=== PATIENT | female | born 1985 | race Caucasian/White ===

== ENCOUNTER 2016-12-14 21:13 | Emergency (ER) | payer OTHER ==
[~2016-12-14] VITALS: Ht 152.4 cm; Wt 59.1 kg
[2016-12-14 21:16] VITALS: BP 111/81; PULSE 75; RESP 20; O2SAT 100
[2016-12-14] MEDS ORDERED: 0.9% Sodium Chloride 1,000 ML IV ONE (21:40)
[2016-12-14] MEDS ORDERED: MetoCLOpramide 5 mg/mL 2 mL Inj IVPUSH ONE (21:40)
--- NOTE | 2016-12-14 21:40 | ED.REPORT ---
HPI-Headache Date of Service December 14, 2016 ED Provider: Dr. Carmelo Amos MD Patient is a 31 year old female with a history of migraine headaches who presents to the ED with a generalized headache that began 3 days ago. Associated symptoms include nausea, vomiting and photophobe. This is similar to her previous episodes. Patient took Depakote with little relief. She denies any head injury, LOC, numbness/tingling in one side. Nursing Notes Stated Complaint: HEADACHE,VOMITING Chief Complaint: Headache Nursing Notes Reviewed: Yes Allergies: Coded Allergies: sumatriptan (Verified Allergy, Unknown, 12/14/16) General Time Seen by MD: 21:39 Chief Complaint Headache Hx Obtained From: Patient Arrived By: Walk-in Sudden in Onset?: No Symptom Duration: Since onset Location: : Generalized Quality: Aching Radiation: : Does not radiate Severity: Current: Moderate Severity: Maximum: Moderate Associated with: Reports: Nausea, Photophobia, Vomiting Pertinent Negative: Pt denies other symptoms Recent Healthcare: No recent doctor visit, No recent hospitalization Risk-Headache )( SAH Risk Stratification RF Statements: Risk factors reviewed )( IC Mass Risk Stratification RF Statements: Risk factors reviewed Past Medical History Past Medical History Migraines Past Surgical History Reports: Hysterectomy Smoking History Unknown if Ever Smoker Social History Alcohol Use: Denies alcohol use Drug Use: Denies drug use Other Social History: Good social support, Local resident Ambulatory Status Independent Review of Systems Constitutional: Denies: Chills, Fever Eyes: Reports: Photophobia GI: Reports: Nausea, Vomiting Neurologic: Reports: Headache, Denies: Change LOC Complete sys rev & neg: except as marked. Physical Exam Initial Vital Signs Vital Signs (First) Date Time Temp Pulse Resp B/P Pulse Ox O2 Delivery O2 Flow Rate FiO2 12/14/16 21:16 36.4 75 20 111/81 100 Room Air Initial VS: Reviewed Extremities: Vascular intact, Neuro intact, No swelling, No tenderness Skin: Warm, Dry, No cyanosis Psychiatric: Mood/affect normal, Behavior normal, Normal thought content General/Constitutional: Awake, Alert Appearance / Presentation: Positive: Uncomfortable Head / Eyes: Atraumatic, Normocephalic, PERRL Neck: Atraumatic, Supple, No meningismus, Full range of motion Meningeal Signs / ROM: Negative: Nuchal rigidity present Neurologic: Oriented X3, Speech NL, No motor deficits, No sensory deficits, CN II - XII intact, Reflexes equal bilat NEURO: No lateralizing deficits. Respiratory / Chest: Atraumatic, Breath sounds NL, Breath sounds = bilat, No respiratory distress Cardiovascular: Heart rate NL, Regular rhythm, Heart sounds NL, No gallop, No murmurs, No rubs, Peripheral circulation NL Abdomen: Atraumatic, Soft, Non-tender, BS normoactive, No distention Re-Eval/Medical Decision Med Decision/Clinical Course In summary, patient is a 31-year-old female with past medical history significant for migraine headaches and previous hysterectomy, who presents with persistent migraine headache headache that has not responded to her home therapy. Our primary and secondary assessment reveals an awake, alert patient in no acute distress. Hemodynamically stable and afebrile. Exam reveals normal neurologic exam. Suspect the patient's headache represents a migraine or tension type headache. Considered other causes of headache to include: Subdural hemorrhage, subarachnoid hemorrhage, [employer] tumor, meningitis, encephalitis, venous sinus thrombosis, dissection, temporal arteritis, intracranial hypertension ( psuedotumor cerebri), sinusitis or cervicalgia, although these are less likely based on the history, exam findings as noted above. Based on this, I feel that further imaging would be low yield and is not warranted at this time. Discussed the risks and benefits of this with the patient who is in agreement. Also discussed with the patient at length that if symptoms change, worsen, or persist, should return to the ER for reevaluation. They understand and agree with the plan. Given the patient's workup, feel they are safe for discharge. The patient was given IV fluids, Reglan, Benadryl and Toradol with good effect. Prior to discharge follow-up and return precautions were reviewed in detail with the patient who verbalized understanding and agreement with the plan. The patient was discharged in stable condition. Re-Evaluation/Progress : Time of Eval: 21:55 )( Patient Status: Condition improved Re-Evaluation/Progress Note: Her pain is still present and she is resting comfortably. All questions are addressed and she understands the return preacutions. Counseled Regarding: Diagnosis, Need for follow-up, When/why to return to ED Discharge & Departure Impression: Primary Impression: Migraine headache Migraine type: unspecified Status migrainosus presence: without status migrainosus Intractability: not intractable Qualified Code: G43.909 - Migraine, unspecified, not intractable, without status migrainosus Additional Impressions: Sensitivity to light Sound sensitivity Laterality: unspecified laterality Qualified Code: H83.3X9 - Noise effects on inner ear, unspecified ear Nausea and vomiting Vomiting type: unspecified Vomiting Intractability: unspecified Qualified Code: R11.2 - Nausea with vomiting, unspecified Disposition: Home Discharge Condition All VS Reviewed: Yes Condition: Improved Patient Instructions: Migraine Headache (ED) Additional Instructions: Thank you for seeking care at the emergency room. It is difficult for us to make definitive diagnoses in the ED but we believe that you are experiencing a migraine headache. Our primary goal today in the ED was to evaluate you for any life-threatening conditions. Your evaluation was reassuring. Take ibuprofen as directed on the bottle as needed for pain. You should follow-up with your primary doctor in the next week. You should return to the ED immediately if you develop any neck stiffness, persistent pain, fevers, vomiting, lightheadedness, weakness or any other concerning signs or symptoms. Thank you for letting us partake in your care today. Referrals: [facility] Scribe Attestation Portions of this note were transcribed by Soledad Tyler. I, Dr. Amos personally performed the history, physical exam and medical decision-making; I reviewed and confirmed the accuracy of the information in the transcribed note. Signed by: Sotero Archer, 12/14/16 [id number]. Carmelo Amos MD December 14, 2016 21:40 SOLEDAD TYLER December 14, 2016 21:42 SOLEDAD TYLER December 14, 2016 21:42
== END 2016-12-14 23:24 | disposition home or self-care (01) ==
LOC: SED 21:13
DX: G43.909 Migraine, unspecified, not intractable, without status migrainosus (principal); H83.3X9 Noise effects on inner ear, unspecified ear; R11.2 Nausea with vomiting, unspecified; H53.149 Visual discomfort, unspecified; Z88.8 Allergy status to other drugs, medicaments and biological substances
CPT/HCPCS: 96361; 96374; 96375; 99284; J1200; J1885; J2765; J7030